=== PATIENT | female | born 1960 | race Caucasian/White ===

== ENCOUNTER → 2025-04-28 08:21 | Outpatient (REF) | payer OTHER, SELFPAY | LOC: WDC 08:21 | PROVIDERS: ATTENDING PHYSICIAN Obstetrics & Gynecology Gynecology; FAMILY PHYSICIAN Student in an Organized Health Care Education/Training Program | DX: Z12.31 Encounter for screening mammogram for malignant neoplasm of breast (principal) | CPT/HCPCS: 77063; 77067 ==

== ENCOUNTER → 2025-07-31 08:54 | Outpatient (REF) | payer OTHER, SELFPAY ==
[2025-07-31 10:48] LABS: Hematocrit 46.9 % (37.0-47.0); Hemoglobin 15.5 g/dL (12.0-16.0); Mean Corp Hgb Conc. 33.0 g/dL (33.0-37.0); Mean Corpuscular Volume 94.0 fL (81.0-99.0); Nucleated Red Blood Cells % 0 %; Platelet Count 242 10^3/uL (130-400); Red Cell Dist. Width 13.1 % (11.5-14.5)
[2025-07-31 10:49] LABS: Urine Character Clear (Clear)
[2025-07-31 11:16] LABS: ALT (SGPT) 26 U/L (0-35); AST (SGOT) 30 U/L (14-36); Albumin 4.7 g/dl (3.5-5.0); Alkaline Phosphatase 73 U/L (38-126); Blood Urea Nitrogen 17 mg/dl (7-17); Calcium 9.6 mg/dl (8.4-10.2); Carbon Dioxide 28 mmol/L (22-30); Chloride 104 mmol/L (98-107); Glucose 83 mg/dl (70-99); HDL Cholesterol 105 mg/dl; Potassium 4.3 mmol/L (3.5-5.1); Sodium 138 mmol/L (135-145); Total Protein 8.0 g/dl (6.3-8.2); Very Low Density Lipoprotein 16 mg/dl (0-30); eGFR > 60.00
[2025-07-31 11:23] LABS: LDL Cholesterol, Calculated 173 mg/dl
[2025-07-31 11:28] LABS: Glycohemoglobin (HgbA1c) 5.5 % (4.0-5.9)
[2025-07-31 11:30] LABS: Vitamin D, 25-OH*** 58.8 ng/mL (30-80)
[2025-07-31 11:43] LABS: TSH 3.56 uIU/ml (0.47-4.68)
[2025-07-31 11:47] LABS: Microalb - Urine Creatinine 140.300 mg/dl
[2025-07-31 11:55] LABS: Microalbumin, Random Urine <0.6 mg/dl (0.6-1.7)
[2025-07-31 14:46] LABS: Urine Squamous Cell 0-2 /LPF (Few)
[2025-07-31 14:47] LABS: Urine Red Blood Cell 0-2 /HPF (0-2)
== END ==
LOC: REG 08:54
PROVIDERS: ATTENDING PHYSICIAN Family Medicine
DX: Z00.00 Encounter for general adult medical examination without abnormal findings (principal)
CPT/HCPCS: 36415; 80053; 80061; 81003; 81015; 82043; 82306; 82570; 83036; 84443; 85025